=== PATIENT | male | born 1985 ===

== ENCOUNTER 2025-05-14 06:18 | Day surgery (SDC) | payer BC, SELFPAY | END 2025-05-14 09:46 | disposition home or self-care (01) | LOC: GI 06:18 | PROVIDERS: ATTENDING PHYSICIAN Internal Medicine Gastroenterology | DX: R19.4 Change in bowel habit (principal); K64.8 Other hemorrhoids; K13.79 Other lesions of oral mucosa; E55.9 Vitamin D deficiency, unspecified; K44.9 Diaphragmatic hernia without obstruction or gangrene | CPT/HCPCS: 45380; 43239; 88305; 88342 ==